=== PATIENT | male | born 1965 | race Hispanic/Latino ===

== ENCOUNTER 2021-10-06 14:42 | Emergency (ER) | payer SELFPAY ==
[2021-10-06] MEDS ORDERED: Caclcium Chloride 10% INJ SYR IV ONE (14:43)
[2021-10-06] MEDS ORDERED: EPINEPHrine 1 MG/10 ML SYR IV ONE (14:43)
[2021-10-06] MEDS ORDERED: SODIUM CHL 0.9% 1000 ML BAG IV ONE (14:43)
[2021-10-06] MEDS ORDERED: EPINEPHRINE/PF 1 MG/ML AMP IV ONE (14:43)
--- NOTE | 2021-10-06 16:02 | ER ---
Nurse's Notes [facility] Name: Pelon Guillen Age: 56 yrs Sex: Male : 1965 Arrival Date: 10/06/2021 Time: 14:59 Bed 3 Private MD: Diagnosis: Acute respiratory failure;Cardiac arrest, cause unspecified;Obesity, unspecified Presentation: 10/06 14:39 Chief complaint: EMS states: pt arrived via EMS CPR in progress, downtime at 1402, iw bystander started CPR, reports that pt was sitting on trailer and fell back and had seizure like activity and had agonal respirations, pt was pulseless upon EMS arrival , ACLS initiated, attempted to intubate X 1 , unsuccessful, shock X 1 , epi X 3. Care prior to arrival: CPR via thumper performed by bystander performed by EMS was defibrillated and is still in progress IV initiated. left tibia Glucose check: 89 Oxygen administered. via AMBU bag. Compressions began prior to arrival. 14:39 Method Of Arrival: EMS: [facility] iw 14:39 Acuity: ROSAMARIA 1 iw 14:39 Coronavirus screen: At this time, the client does not indicate any symptoms associated iw with coronavirus-19. Ebola Screen: Patient negative for fever greater than or equal to 101.5 degrees Fahrenheit, and additional compatible Ebola Virus Disease symptoms Patient denies exposure to infectious person. Patient denies travel to an Ebola-affected area in the 21 days before illness onset. No symptoms or risks identified at this time. Initial Sepsis Screen: Does the patient meet any 2 criteria? No. Patient's initial sepsis screen is negative. Does the patient have a suspected source of infection? No. Patient's initial sepsis screen is negative. Risk Assessment: Do you want to hurt yourself or someone else? Patient reports no desire to harm self or others. Onset of symptoms was October 06, 2021. Historical: - Allergies: 15:23 No Known Allergies; iw - Home Meds: 15:23 None [Active]; iw - PMHx: 15:23 None; iw - Immunization history:: Adult Immunizations unknown. - Family history:: not pertinent. Assessment: 14:39 CPR assessment: unresponsive, no respiratory effort, Ambu ventilation, pale. iw 14:42 CPR assessment: unresponsive, no respiratory effort, Ambu ventilation. CPR assessment: iw intubated. Cardiac rhythm is asystole. 14:43 CPR assessment: unresponsive, no respiratory effort, intubated, Ambu ventilation. iw Cardiac rhythm is PEA. 14:45 CPR assessment: unresponsive, no respiratory effort, intubated, Ambu ventilation, pale. iw Cardiac rhythm is PEA. 14:47 CPR assessment: unresponsive, no respiratory effort, intubated, Ambu ventilation, pale. iw Cardiac rhythm is PEA. 14:48 Cardiac rhythm is asystole. iw 14:51 CPR assessment: unresponsive, no respiratory effort, intubated, Ambu ventilation. iw Cardiac rhythm is asystole. 14:53 CPR assessment: unresponsive, no respiratory effort, intubated, Ambu ventilation, pale. iw Cardiac rhythm is asystole. 14:56 CPR assessment: unresponsive, no respiratory effort, intubated, Ambu ventilation, pale. iw Cardiac rhythm is asystole. 14:57 Cardiac rhythm is asystole. iw 14:59 CPR assessment: unresponsive, no respiratory effort, intubated, Ambu ventilation, pale. iw Cardiac rhythm is asystole. 15:01 CPR assessment: unresponsive, no respiratory effort, intubated, Ambu ventilation, pale. iw Cardiac rhythm is PEA. 15:04 Cardiac rhythm is attempt to pace , 70 bpm \T\ 110 mA, no capture noted on monitor. iw 15:05 CPR assessment: unresponsive, no respiratory effort, intubated, Ambu ventilation, pale. iw Cardiac rhythm is PEA. 15:06 CPR assessment: unresponsive, no respiratory effort. Cardiac rhythm is asystole. 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 Vital Signs: 15:06 Temp 99.1(R); iw ED Course: 14:42 Assisted provider with intubation using 7.5 mm ETT via oral route. Set up intubation iw tray. Intubated by Tien Tristan MD Placement verified by CO2 detector w/ + color change, auscultating bilateral breath sounds. 14:45 Patient has correct armband on for positive identification. iw 14:48 Assisted provider with central line placement. Set up central line tray. Triple lumen iw line placed in right femoral. Line placed by Tien Tristan MD Placement verified by blood return, Dressed with Tape, Tegaderm. 14:59 Patient arrived in ED. bd 15:00 Tien Tristan MD is Attending Physician. cp 15:04 Patient was paced with an external pacer. Rate set at 70 in beats/min. Current set to iw 110 milliamps, Capture was not noted. 15:13 Rafal Landa, LIV is Primary Nurse. jl7 15:[address] [place] [address] to have the appellate court judge come to er. bd 15:20 Triage completed. iw 15:50 NGT: inserted 16 Fr. via right nare. verified return of gastric contents, to jl7 intermittent suction. Returned gastric contents. 16:00 Tien Tristan MD is Pronouncing Provider. vanessa Administered Medications: 14:41 Drug: EPINEPHrine 0.1mg/mL 1:10,000 1 mg {Note: left tibio IO.} Route: IVP; Site: Other;iw 14:45 Follow up: Response: Marked relief of symptoms iw 14:44 Drug: EPINEPHrine 0.1mg/mL 1:10,000 1 mg {Note: left tibia IO.} Route: IVP; Site: Other;iw 14:48 Follow up: Response: No change in condition iw 14:44 Drug: Sodium Bicarbonate 1 amp {Note: left tibia IO.} Route: IVP; Site: Other; iw 14:50 Follow up: Response: No change in condition iw 14:45 Drug: Calcium Chloride 1 grams Route: IVP; Site: right antecubital; iw 14:47 Follow up: Response: No change in condition iw 14:47 Drug: EPINEPHrine 0.1mg/mL 1:10,000 1 mg Route: IVP; Site: right antecubital; iw 14:49 Follow up: Response: No change in condition iw 14:50 Drug: EPINEPHrine 0.1mg/mL 1:10,000 1 mg Route: IVP; Site: right femoral; iw 14:52 Follow up: Response: No change in condition iw 14:50 Drug: Sodium Bicarbonate 1 amp Route: IVP; Site: right femoral; iw 14:52 Follow up: Response: No change in condition iw 14:52 Drug: EPINEPHrine (PF) 1mg/mL 1:1,000 1 mg {Note: given by Dr. Tristan.} Route: IV; iw Rate: bolus; Site: right femoral; 14:52 Follow up: IV Status: Completed infusion iw 14:56 Drug: EPINEPHrine 0.1mg/mL 1:10,000 1 mg Route: IVP; Site: right femoral; iw 14:58 Follow up: Response: No change in condition iw 15:03 Drug: EPINEPHrine 0.1mg/mL 1:10,000 1 mg Route: IVP; Site: right femoral; iw 15:06 Follow up: Response: No adverse reaction; No change in condition iw 16:06 Not Given (Duplicate Order): Sodium Bicarbonate 1 amp IVP in right femoral once; (50 iw mL); equals 50 mEq Point of Care Testing: Blood Glucose: 14:44 Blood Glucose: 223 mg/dL; iw Ranges: Outcome: 15:06 Outcome Patient iw 15:06 Patient : Time of 15:06 Pronounced by Tien Tristan MD Body released to NC 17:02 Patient left the ED. jl7 Signatures: Vanessa Woo Corey, MD MD cha Williams, Irene, RN RN Tien Armenta PA PA cp Leal, Jahala, RN RN jl7 Corrections: (The following items were deleted from the chart) 16:06 14:50 Sodium Bicarbonate 1 amp IVP in right femoral iw iw 16:06 14:52 Response: No change in condition iw iw 17:03 15:06 Patient : Time of 15:06 Pronounced by Tien Tristan MD iw iw
--- NOTE | 2021-10-06 16:02 | EDPHYS ---
Physician Documentation [facility] Name: Pelon Guillen Age: 56 yrs Sex: Male : 1965 Arrival Date: 10/06/2021 Time: 14:59 Bed 3 Private MD: ED Physician Tien Tristan HPI: 10/06 15:17 This 56 yrs old Male presents to ER via Unassigned with complaints of CPR. vanessa Historical: - Allergies: 15:23 No Known Allergies; iw - Home Meds: 15:23 None [Active]; iw - PMHx: 15:23 None; iw - Immunization history:: Adult Immunizations unknown. - Family history:: not pertinent. ROS: 15:55 Unable to obtain ROS due to cpr in progress. vanessa Exam: 15:55 Cardiovascular: Rate: actual rate is 0 bpm, Rhythm: asystole, PEA, Pulses: not vanessa palpable, Heart sounds: NONE, Edema: is not appreciated, JVD: is not appreciated. 15:59 Eyes: Pupils: are fixed and dilated. vanessa 15:59 Musculoskeletal/extremity: DVT Exam: No signs of deep vein thrombosis. no pain, no swelling, no tenderness, negative Homans' sign noted on exam, no appreciated bluish discoloration, no erythema, no increased warmth. 15:59 Skin: Appearance: Color: cyanotic. Vital Signs: 15:06 Temp 99.1(R); iw Procedures: 16:04 Intubation: Intubated orally using # 4 Jazmine blade with 7.5 mm ETT. was successful vanessa on first attempt. Ventilated with Ambu bag. Cricoid pressure applied during procedure. Tube secured at right side of mouth measured 23 cm at lip. Placement verified by CO2 detector with (+) color change, auscultating bilateral breath sounds, Patient tolerated well. Central Line: the site was prepped with Betadine, in sterile fashion, a triple lumen catheter was inserted, in the right in 1 attempts. placement was verified, by blood return, the site was dressed with using sterile technique, the patient tolerated the procedure, well. MDM: 15:00 Patient medically screened. cp 15:56 Differential diagnosis: arrythmia, cardiac arrest, respiratory arrest, traumatic vanessa injury, overdose, asphyxiation, renal failure. Data reviewed: vital signs, nurses notes, EMS record. 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 Counseling: I had a detailed discussion with the patient and/or guardian regarding: the historical points, exam findings, and any diagnostic results supporting the discharge/admit diagnosis. 10/06 16:10 Order name: glucometer results - FOR PT WITH NO ID iw Administered Medications: 14:41 Drug: EPINEPHrine 0.1mg/mL 1:10,000 1 mg {Note: left tibio IO.} Route: IVP; Site: Other;iw 14:45 Follow up: Response: Marked relief of symptoms iw 14:44 Drug: EPINEPHrine 0.1mg/mL 1:10,000 1 mg {Note: left tibia IO.} Route: IVP; Site: Other;iw 14:48 Follow up: Response: No change in condition iw 14:44 Drug: Sodium Bicarbonate 1 amp {Note: left tibia IO.} Route: IVP; Site: Other; iw 14:50 Follow up: Response: No change in condition iw 14:45 Drug: Calcium Chloride 1 grams Route: IVP; Site: right antecubital; iw 14:47 Follow up: Response: No change in condition iw 14:47 Drug: EPINEPHrine 0.1mg/mL 1:10,000 1 mg Route: IVP; Site: right antecubital; iw 14:49 Follow up: Response: No change in condition iw 14:50 Drug: EPINEPHrine 0.1mg/mL 1:10,000 1 mg Route: IVP; Site: right femoral; iw 14:52 Follow up: Response: No change in condition iw 14:50 Drug: Sodium Bicarbonate 1 amp Route: IVP; Site: right femoral; iw 14:52 Follow up: Response: No change in condition iw 14:52 Drug: EPINEPHrine (PF) 1mg/mL 1:1,000 1 mg {Note: given by Dr. Tristan.} Route: IV; iw Rate: bolus; Site: right femoral; 14:52 Follow up: IV Status: Completed infusion iw 14:56 Drug: EPINEPHrine 0.1mg/mL 1:10,000 1 mg Route: IVP; Site: right femoral; iw 14:58 Follow up: Response: No change in condition iw 15:03 Drug: EPINEPHrine 0.1mg/mL 1:10,000 1 mg Route: IVP; Site: right femoral; iw 15:06 Follow up: Response: No adverse reaction; No change in condition iw 16:06 Not Given (Duplicate Order): Sodium Bicarbonate 1 amp IVP in right femoral once; (50 iw mL); equals 50 mEq Point of Care Testing: Blood Glucose: 14:44 Blood Glucose: 223 mg/dL; iw Ranges: Critical Glucose Levels:Adult <50 mg/dl or >400 mg/dl <40 mg/dl or >180 mg/dl Disposition Summary: 10/06/21 16:02 Patient Location: [employer] Supervisor vanessa Pronouncing Physician: Tien Tristan cha Time of : 15:06 10/06/2021 vanessa Diagnosis - Acute respiratory failure vanessa - Cardiac arrest, cause unspecified vanessa - Obesity, unspecified vanessa Signatures: Dispatcher [employer] EDTien Abebe MD MD cha Williams, Irene, RN RN Tien Jacobs PA PA cp
[2021-10-06 17:18] VITALS: TEMP 99.1
== END 2021-10-06 17:02 ==
LOC: ER 14:42
PROC: 0BH17EZ Insertion of Endotracheal Airway into Trachea, Via Natural or Artificial Opening (ICD-10-PCS; principal; 2021-10-06)
PROC: 5A1935Z Respiratory Ventilation, Less than 24 Consecutive Hours (ICD-10-PCS; 2021-10-06)
PROC: 06HM33Z Insertion of Infusion Device into Right Femoral Vein, Percutaneous Approach (ICD-10-PCS; 2021-10-06)
DX: I46.9 Cardiac arrest, cause unspecified (principal); E66.9 Obesity, unspecified
CPT/HCPCS: 36415; 82947; J0171; J7030